=== PATIENT | male | born 1960 | race Caucasian/White ===

== ENCOUNTER 2018-06-15 10:22 | Observation (INO) | payer BC ==
[~2018-06-15] VITALS: Ht 182.9 cm; Wt 106.6 kg
[2018-06-15] MEDS ORDERED: SODIUM CHLORIDE 0.9% 1000ML 1,000 ML IV STA (10:23)
[2018-06-15] MEDS ORDERED: ASPIRIN 81 MG CHEW TAB PO ONE ×2 (10:30→15:00)
[2018-06-15 10:40] LABS: BASOPHILS % 0.4 % (0.0-1.0); EOSINOPHILS # (AUTO) 0.1 (0.0-0.4); EOSINOPHILS % 1.5 % (0.0-6.0); HEMATOCRIT 43.9 % (38.2-49.6); HEMOGLOBIN 15.4 g/dL (14.0-18.0); LYMPHOCYTES # (AUTO) 1.7 (1.0-3.2); LYMPHOCYTES % 31.6 % (18.0-39.1); MEAN CORPUSCULAR HGB CONC 35.1 g/dL (31-35); MEAN CORPUSCULAR VOLUME 85.6 fL (81-99); MONOCYTES # (AUTO) 0.3 (0.2-0.8); MONOCYTES % 4.7 % (4.4-11.3); NEUTROPHILS # (AUTO) 3.4 (2.1-6.9); NEUTROPHILS % 61.3 % (38.7-80.0); PLATELET COUNT 190 x10e3/uL (140-360); RED BLOOD COUNT 5.13 x10e6/uL (4.3-5.7)
[2018-06-15 10:55] LABS: INR 1.14; PROTHROMBIN TIME 13.7 seconds (11.9-14.5)
[2018-06-15 10:56] LABS: PARTIAL THROMBOPLASTIN TIME 25.8 seconds (23.8-35.5)
[2018-06-15 11:01] LABS: ALANINE AMINOTRANSFERASE 36 IU/L (0-55); ALBUMIN 4.4 g/dL (3.5-5.0); ALBUMIN/GLOBULIN RATIO 1.4 (0.8-2.0); ALKALINE PHOSPHATASE 49 IU/L (40-150); ANION GAP 18.2 mmol/L (8-16); BLOOD UREA NITROGEN 10 mg/dL (7-26); BUN/CREATININE RATIO 8 (6-25); CALCIUM 9.6 mg/dL (8.4-10.2); CARBON DIOXIDE 20 mmol/L (22-29); CHLORIDE 104 mmol/L (98-107); CREATINE KINASE 96 IU/L (30-200); EST GLOMERULAR FILTRATION RATE > 60 ML/MIN (60-); GLUCOSE 264 mg/dL (74-118); POTASSIUM 3.2 mmol/L (3.5-5.1); SODIUM 139 mmol/L (136-145)
[2018-06-15 11:37] LABS: CLARITY,URINE CLEAR (CLEAR); COLOR,URINE YELLOW (YELLOW)
[2018-06-15 11:38] LABS: AMPHETAMINES SCREEN,URINE NEGATIVE (NEGATIVE); BENZODIAZEPINES SCREEN,URINE NEGATIVE (NEGATIVE); BILIRUBIN,URINE NEGATIVE (NEGATIVE); KETONES,URINE NEGATIVE (NEGATIVE); LEUKOCYTE ESTERASE ,URINE NEGATIVE (NEGATIVE); NITRITE,URINE NEGATIVE (NEGATIVE); PHENCYCLIDINE SCREEN,URINE NEGATIVE (NEGATIVE); PROTEIN,URINE DIPSTICK NEGATIVE (NEGATIVE); URINE UROBILINOGEN 0.2 mg/dL (0.2 - 1)
[2018-06-15 11:50] LABS: BACTERIA,URINE FEW /HPF; EPITHELIAL CELLS,URINE RARE /LPF; RBC,URINE 0-5 /HPF (0-5); WBC,URINE (MAN) 0-5 /HPF (0-5)
[2018-06-15] MEDS ORDERED: ONDANSETRON HCL INJ 2 MG/ML VIAL IV PRN (12:30)
--- NOTE | 2018-06-15 12:49 | Diagnostic Imaging Report ---
Examination: Single AP view of the chest. COMPARISON: None. INDICATION: Chest pain, shortness of breath IMPRESSION: 1. Lines and Tubes: None 2. Mildly hypoinflated lungs. Patchy opacity in the left lower lung likely represents atelectasis. No consolidation or pleural effusion. 3. Cardiomediastinal silhouette is normal. Mild central vascular crowding due to low lung volumes. 4. No acute bony abnormalities. Signed by: Dr. Austen Chaney M.D. on 06/15/2018 12:45 PM
[2018-06-15] MEDS ORDERED: CLOPIDOGREL BISULFATE 75 MG TAB PO ONE (15:00)
[2018-06-15 15:42] LABS: CREATINE KINASE MB 1.8 ng/mL (0-5.0)
[2018-06-15 15:57] VITALS: BP 136/93
[2018-06-15] MEDS ORDERED: ENOXAPARIN SODIUM INJ 100 MG/ML SYR SC SCH (16:00)
[2018-06-15] MEDS ORDERED: POTASSIUM CHLORIDE 10 MEQ TABCR PO SCH (16:00)
[2018-06-15] MEDS: POTASSIUM CHLORIDE 20 MEQ TAB CR PO SCH ×2 (16:37→19:18)
[2018-06-15] MEDS: ENOXAPARIN SODIUM INJ 100 MG/ML SYR SC SCH (16:38)
[2018-06-15 16:46] VITALS: BP 136/93
[2018-06-15] MEDS: METOPROLOL TARTRATE 25 MG TAB PO SCH (17:06)
[2018-06-15 17:19] VITALS: BP 136/93
--- NOTE | 2018-06-15 19:02 | Consultation ---
DATE OF CONSULTATION: June 15, 2018 REASON FOR CONSULTATION: Chest pain. HPI: This is a 57-year-old male with history of reflux. Patient presents to [facility] after having some chest discomfort while at work. On arrival to the ER, heart rate was noted to be in 140s, was given 1 liter of NS and aspirin therapy. Cardiology was consulted. The patient was seen in room with at the bedside. He reports this morning around 08:45 while at work, he was walking and started to have some shortness of breath, chest tightness, and heart racing. Some degree of nausea also was reported. One of his coworkers gave him aspirin 325 x2 and brought him to [facility]. Currently, patient feels fine. EKG was noted with some inferior abnormalities and also some ST changes. It was discussed with patient for possible left heart catheterization; however, patient states he does not want a heart catheterization and wants to be treated medically for now. Of note, first enzyme is negative and we are waiting for second set. Currently, patient reports that he feels back to baseline. PAST MEDICAL HISTORY: Reflux. SURGICAL HISTORY: Right inguinal hernia repair and excision of lipoma on his neck. FAMILY HISTORY: Mother is alive, age 81, unknown medical history. Father is alive, age 85, apparently he has a history of sepsis. 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 He is . He drinks alcohol on occasion. He denies any tobacco use. ALLERGIES: CEFTRIAXONE. REVIEW OF SYSTEMS GENERAL: Denies any fatigue, weakness, fevers, chills, night sweats, any weight changes. SKIN: Denies any rashes, sores, or lumps. HEENT: Denies any trauma. Positive for nausea. No vomiting. No vision changes. No blurriness. Denies any tinnitus, vertigo, earaches, stuffiness, sneezing, epistaxis, any sore throat, or hoarseness. CARDIAC: Positive for chest pain as above. Positive for palpitations. Positive for dyspnea on exertion. Denies any orthopnea, any PND, any lower extremity edema. RESPIRATORY: Positive for shortness of breath. No hemoptysis. GI: Reports good appetite. Positive for nausea. No vomiting. No diarrhea or constipation. No hematemesis. No melena. URINARY: Denies any urgency, frequency, hematuria, or any nocturia. VASCULAR: Denies any lower extremity edema or claudication. MUSCULOSKELETAL: Denies any muscle weakness. Positive for generalized joint pains. NEUROLOGIC: Denies any numbness, tingling, tremors, weakness, fainting, blackouts, seizures. HEMATOLOGY: Denies any anemia, any easy bruising, or bleeding. ENDOCRINE: Denies any heat or cold intolerance, any polyuria, polydipsia, or polyphagia. PHYSICAL EXAMINATION VITALS SIGNS: Initially, temperature 97.9, pulse 148, respiratory rate 16, blood pressure 167/94, pulse ox 96. Currently, temperature is 98.4, pulse is 65, respiratory rate 18, blood pressure 128/84, pulse ox 99% on room air. SKIN: No rashes or bruises noted. HEENT: Normocephalic. Pupils are equal and reactive. Extraocular motor intact. Trachea is midline. Oral mucosa pink. NECK: No JVD. No thyromegaly. HEART: Regular rate and rhythm. No murmurs. No clicks. PMI at 4th and 5th intercostal space. LUNGS: Bilateral breath sounds. Clear to auscultation. Good airway entry and exit. ABDOMEN: Soft, nontender, nondistended. No organomegaly noted. MUSCULOSKELETAL: Good muscle strength throughout. No lower extremity swelling. VASCULAR: +2 bilateral radial pulses, +2 bilateral femoral pulses, +2 DP and PT pulses bilaterally. LABORATORY DATA: Sodium 139, potassium 3.2, chloride 104, bicarb 20, BUN 10, creatinine 1.2. Initial troponin 0.1, BNP 29. Chest x-ray, no acute abnormalities. EKG showing sinus tach with heart rate in 140s with Q waves in the inferior leads and some slight ST depressions in the anterolateral leads noted. IMPRESSION 1. Chest pain. 2. Abnormal EKG. 3. Hypertension. 4. Hypokalemia. 5. Reflux. PLAN 1. Patient presents with very typical chest pain symptoms with abnormal EKG. Initial enzymes negative thus far; however, given his very typical symptoms and abnormal EKG, a left heart catheterization was recommended. However, the patient does not want heart catheterization, wants to be treated medically for now. We will treat patient exactly as per his wishes. We will go ahead and load patient with Plavix 600 mg and start daily regimen. We will start beta-kayy therapy. Also, we will continue his aspirin therapy. 2. We will obtain a lipid panel. 3. We will obtain echo to evaluate heart function and structure. 4. Continue telemonitoring. 5. We will continue to monitor the patient and adjust cardiac care as course indicates. Thank you very much for this consult. Seen and examined Agree with note Differential diagnoses and option of work up and treatment are discussed Job#: [id number] DINO MATHIS
[2018-06-15 19:53] VITALS: BP 128/87
[2018-06-15 19:54] VITALS: BP 128/87
[2018-06-15] MEDS ORDERED: POTASSIUM CHLORIDE 20 MEQ TAB CR PO SCH (20:00)
[2018-06-15] MEDS: ATORVASTATIN 10 MG TAB PO SCH (20:42)
[2018-06-15 23:31] LABS: CREATINE KINASE MB 1.9 ng/mL (0-5.0)
[2018-06-16] VITALS (8 sets, daily range): BP systolic 118–146; BP diastolic 73–87
[2018-06-16] MEDS ORDERED: MAGNESIUM/ALUMINUM/SIMETHICONE 30 ML UDC PO PRN (03:00)
--- NOTE | 2018-06-16 04:40 | History and Physical ---
DATE OF THIS ENCOUNTER: June 15, 2018 PRIMARY DOCTOR: Dr. Arambula [facility] COVERING PHYSICIAN: Dr. Vicente Clay HISTORY: Mr. Thomas is a pleasant 57-year-old gentleman with chest pain. Patient with chest pain episode occurring today. There is some associated nausea. Some shortness of breath associated. Patient was given aspirin. He came to [facility] thereafter. EKG with some inferior abnormalities and some ST changes. Cardiac enzyme was negative initially. However, due to the EKG changes, he was offered early heart catheterization. Patient of note had a stress test in about 2016 which he claims was unremarkable. Last stress test was at [facility]. PAST MEDICAL HISTORY: GERD, right inguinal hernia repair, and excision of lipoma on neck. MEDICATIONS: Medication list reviewed per electronic record. ALLERGIES: CEFTRIAXONE. 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 He only smoked few cigarettes from age 23 to 28 mostly, quit. For most of his life, he is a nonsmoker. No drugs. He drinks about 8 to 9 beers on weekend. FAMILY HISTORY: Not contributory. REVIEW OF SYSTEMS: GENERAL: No weight changes. OPHTHALMOLOGIC: No double vision. ENT: No bleeding in the mouth. ENDOCRINE: No thyroid disease. CARDIAC: No heart attacks that were known in the past. PULMONARY: No asthma. : No blood in the urine. GI: No chronic diarrhea. NEUROLOGIC: No seizures. DERMATOLOGIC: No rashes. PSYCHIATRIC: No depression. OBJECTIVE: VITAL SIGNS: Afebrile, vital signs noted per electronic record. GENERAL: In no acute distress, alert and calm. HEENT: Normocephalic, atraumatic. NECK: Supple. Throat midline. LUNGS: Bilateral air entry, clear. CARDIOVASCULAR: S1, S2. No murmurs, rubs, or gallops. ABDOMEN: Soft, nontender. EXTREMITIES: No clubbing, no cyanosis, there is no edema. INTEGUMENT: No rash, no purpura. IMPRESSION AND PLAN: 1. Chest pain, mildly atypical. 2. Abnormal electrocardiogram as above. 3. History of gastroesophageal reflux disease. 4. Hyperglycemia, not otherwise specified. 5. Hypokalemia. Admit to observation. Check lipid panel. Check hemoglobin A1c. Follow up fingersticks. Cardiology consult to consider further testing. Continue to rule out myocardial infarction. Treat as gastroesophageal reflux disease as well in the meantime. Thank you very much, Dr. Bernal for allowing us the chance to participate in care of your patient. Do not hesitate to call us if we can help in any way. Job#: [id number]
[2018-06-16] MEDS: ENOXAPARIN SODIUM INJ 100 MG/ML SYR SC SCH ×2 (05:41→16:28)
[2018-06-16 06:01] LABS: BASOPHILS # (AUTO) 0.1 (0.0-0.1); BASOPHILS % 0.8 % (0.0-1.0); EOSINOPHILS # (AUTO) 0.1 (0.0-0.4); EOSINOPHILS % 1.6 % (0.0-6.0); HEMATOCRIT 41.2 % (38.2-49.6); HEMOGLOBIN 14.4 g/dL (14.0-18.0); LYMPHOCYTES # (AUTO) 2.1 (1.0-3.2); LYMPHOCYTES % 34.2 % (18.0-39.1); MEAN CORPUSCULAR HEMOGLOBIN 30.1 pg (28-32); MEAN CORPUSCULAR VOLUME 86.2 fL (81-99); MONOCYTES # (AUTO) 0.5 (0.2-0.8); MONOCYTES % 7.4 % (4.4-11.3); NEUTROPHILS # (AUTO) 3.4 (2.1-6.9); NEUTROPHILS % 55.5 % (38.7-80.0); PLATELET COUNT 198 x10e3/uL (140-360); RED BLOOD COUNT 4.78 x10e6/uL (4.3-5.7)
[2018-06-16 06:21] LABS: ALANINE AMINOTRANSFERASE 31 IU/L (0-55); ALBUMIN 3.9 g/dL (3.5-5.0); ALBUMIN/GLOBULIN RATIO 1.4 (0.8-2.0); ALKALINE PHOSPHATASE 46 IU/L (40-150); ANION GAP 13.3 mmol/L (8-16); BLOOD UREA NITROGEN 8 mg/dL (7-26); BUN/CREATININE RATIO 9 (6-25); CALCIUM 9.4 mg/dL (8.4-10.2); CARBON DIOXIDE 24 mmol/L (22-29); CHLORIDE 107 mmol/L (98-107); CREATININE, SERUM 0.93 mg/dL (0.72-1.25); EST GLOMERULAR FILTRATION RATE > 60 ML/MIN (60-); GLUCOSE 96 mg/dL (74-118); POTASSIUM 4.3 mmol/L (3.5-5.1); SODIUM 140 mmol/L (136-145)
[2018-06-16 06:25] LABS: CREATINE KINASE MB 1.5 ng/mL (0-5.0)
[2018-06-16 06:34] LABS: CHOL/HDL RATIO 4.5 (3.9-4.7)
[2018-06-16] MEDS: ASPIRIN 325 MG TAB EC PO SCH (08:16)
[2018-06-16] MEDS: CLOPIDOGREL BISULFATE 75 MG TAB PO SCH (08:16)
[2018-06-16] MEDS: METOPROLOL TARTRATE 25 MG TAB PO SCH ×2 (08:16→16:28)
[2018-06-16] MEDS: ATORVASTATIN 10 MG TAB PO SCH (20:27)
[2018-06-17] VITALS (9 sets, daily range): BP systolic 101–128; BP diastolic 66–84
[2018-06-17] MEDS: ENOXAPARIN SODIUM INJ 100 MG/ML SYR SC SCH (05:02)
[2018-06-17] MEDS: ASPIRIN 325 MG TAB EC PO SCH (08:20)
[2018-06-17] MEDS: METOPROLOL TARTRATE 25 MG TAB PO SCH ×2 (08:20→16:38)
[2018-06-17] MEDS: CLOPIDOGREL BISULFATE 75 MG TAB PO SCH (08:20)
[2018-06-17] MEDS: ATORVASTATIN 10 MG TAB PO SCH (20:00)
[2018-06-18] VITALS (8 sets, daily range): BP systolic 115–135; BP diastolic 73–82
[2018-06-18] MEDS ORDERED: SODIUM CHLORIDE 0.9% 1000ML 1,000 ML IV SCH (05:00)
[2018-06-18 05:17] LABS: BASOPHILS # (AUTO) 0.1 (0.0-0.1); BASOPHILS % 0.9 % (0.0-1.0); EOSINOPHILS # (AUTO) 0.1 (0.0-0.4); EOSINOPHILS % 1.9 % (0.0-6.0); HEMATOCRIT 45.7 % (38.2-49.6); LYMPHOCYTES % 29.2 % (18.0-39.1); MEAN CORPUSCULAR HEMOGLOBIN 30.1 pg (28-32); MEAN CORPUSCULAR VOLUME 86.1 fL (81-99); MONOCYTES # (AUTO) 0.6 (0.2-0.8); MONOCYTES % 8.7 % (4.4-11.3); NEUTROPHILS % 58.9 % (38.7-80.0); PLATELET COUNT 213 x10e3/uL (140-360); RED BLOOD COUNT 5.31 x10e6/uL (4.3-5.7); RED CELL DISTRIBUTION WIDTH 12.9 % (11.7-14.4)
[2018-06-18 05:39] LABS: ALANINE AMINOTRANSFERASE 44 IU/L (0-55); ALBUMIN 4.5 g/dL (3.5-5.0); ALBUMIN/GLOBULIN RATIO 1.5 (0.8-2.0); ALKALINE PHOSPHATASE 52 IU/L (40-150); ANION GAP 15.2 mmol/L (8-16); BLOOD UREA NITROGEN 13 mg/dL (7-26); BUN/CREATININE RATIO 13 (6-25); CALCIUM 9.9 mg/dL (8.4-10.2); CARBON DIOXIDE 25 mmol/L (22-29); CHLORIDE 105 mmol/L (98-107); CREATININE, SERUM 1.04 mg/dL (0.72-1.25); EST GLOMERULAR FILTRATION RATE > 60 ML/MIN (60-); GLUCOSE 95 mg/dL (74-118); POTASSIUM 4.2 mmol/L (3.5-5.1); SODIUM 141 mmol/L (136-145)
[2018-06-18] MEDS: METOPROLOL TARTRATE 25 MG TAB PO SCH ×2 (09:00→16:28)
[2018-06-18] MEDS: ASPIRIN 325 MG TAB EC PO SCH (09:00)
[2018-06-18] MEDS ORDERED: IOPAMIDOL 370 MG/ML 200 ML INFUS..BTL INJ ONE (09:05)
[2018-06-18] MEDS ORDERED: LIDOCAINE HCL 2% LOCAL 20 ML VIAL ONE (09:05)
[2018-06-18] MEDS ORDERED: HEPARIN SOD/SOD CHLORIDE 2,000 ML ONE (09:05)
[2018-06-18] MEDS ORDERED: MIDAZOLAM HCL 2 MG/2 ML VIAL ONE (09:37)
[2018-06-18] MEDS ORDERED: FENTANYL CITRATE/PF 100MCG/2 ML INJ ONE (09:37)
--- NOTE | 2018-06-18 10:41 | Operative Report ---
DATE OF PROCEDURE: June 18, 2018 PROCEDURE: Left cardiac catheterization. INDICATIONS: Chest pain. Patient had EKG with tachycardia showing S/T segment changes, inferior T-waves and very abnormal sudden onset with diaphoresis very typical of unstable coronary syndrome. TECHNICAL DETAILS: After the usual sterile preparation and draping procedure, intravenous Versed and fentanyl given for sedation. Local Xylocaine for anesthesia. A 4-Cameroonian sheath established in the right common femoral artery. Randy left 5 and 3DRC catheters to engage the coronary. Pigtail for hemodynamic measurement and left ventriculogram. At the end of the procedure, sheath was removed. Hemostasis achieved manually. No complication. No blood loss. RESULTS A. Coronary angiogram: 1. Left main free of disease. 2. LAD relatively large artery with several plaques at 30%. 3. Circumflex coronary artery dominant artery giving large 1st obtuse marginal and then small 2nd obtuse marginal and 2 PDA with 30% disease in the PDAs. 4. Right coronary artery small and nondominant. B. Hemodynamic: Aortic pressure 120/80. LV pressure 120/20. C. Left ventriculogram: the right anterior oblique view showed normal size ventricles with normal contractility. Ejection fraction of 60% to 70%. The aortic root is mildly dilated. IMPRESSION 1. Mild coronary artery disease. 2. Dominant left circumflex system. 3. Preserved ventricular systolic function at 60% to 70%. RECOMMENDATIONS: Medical therapy. COMPLICATIONS: None. BLOOD LOSS: None. Job#: [id number] LA
--- NOTE | 2018-06-18 13:20 | Discharge Summary ---
FINAL DIAGNOSIS: Mild coronary artery disease. SECONDARY DIAGNOSIS: Dyslipidemia. CONSULTANTS: Dr. Sosa, Cardiology. PROCEDURES/STUDIES PERFORMED: Left heart catheter. HISTORY: Per dictated H and P. HOSPITAL COURSE: Patient was admitted. His troponins were negative times four, therefore he did not have an acute myocardial infarction. His total cholesterol is 201, his LDL is 135. His TSH is normal. Patient was evaluated by cardiology and underwent left heart cath which just shows mild coronary artery disease. Patient will go home on a low dose statin. His blood pressure is controlled. He does not need a blood pressure medicine. Patient was seen and examined today. CONDITION ON DISCHARGE: Stable. DISCHARGE MEDICATIONS: Please see medication reconciliation form. ALVINO FREGOSO M.D. Job#: [id number] DG
[2018-06-18] MEDS ORDERED: METOPROLOL TART25 MG PO (18:03)
[2018-06-18] MEDS ORDERED: ATORVASTATIN CA10 MG PO (18:03)
[2018-06-18] MEDS ORDERED: ASPIRIN81 MG (18:04)
[2018-06-18] MEDS ORDERED: PRAVACHOL20 MG (18:14)
== END 2018-06-18 18:37 | disposition home or self-care (01) ==
LOC: ER 10:22 → ERHOLD 12:37 → IMCU 14:28
PROVIDERS: ADMIT Internal Medicine; ATTEND Internal Medicine
DX: I25.10 Atherosclerotic heart disease of native coronary artery without angina pectoris (principal); I34.0 Nonrheumatic mitral (valve) insufficiency; I07.1 Rheumatic tricuspid insufficiency; R07.89 Other chest pain; R94.31 Abnormal electrocardiogram [ECG] [EKG]; K21.9 Gastro-esophageal reflux disease without esophagitis; R73.9 Hyperglycemia, unspecified; E87.6 Hypokalemia; I10 Essential (primary) hypertension; E78.5 Hyperlipidemia, unspecified
CPT/HCPCS: 36415 ×3; 71045; 80053 ×3; 80061; 80307; 81001; 82550 ×2; 82553 ×2; 83036; 83880; 84443; 84484 ×2; 85025 ×3; 85379; 85610; 85730; 93005 ×2; 93306 ×2; 93458; 99284; C1766; G0378 ×4; J1650 ×3; J2001; J2250; J7030 ×2; Q9967; 36140